=== PATIENT | female | born 1995 | race Caucasian/White ===

== ENCOUNTER 2018-09-30 18:17 | Emergency (ER) | payer OTHER, MEDICAID ==
[2018-09-30 18:17] VITALS: BMI 25.9
[2018-09-30 18:33] VITALS: BP 106/66; PULSE 90; RESP 20; TEMP 98.9; O2SAT 100
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
== END 2018-09-30 19:41 | disposition home or self-care (01) ==
LOC: C.ER 18:17
DX: S00.93XA Contusion of unspecified part of head, initial encounter (principal); V89.2XXA Person injured in unspecified motor-vehicle accident, traffic, initial encounter